=== PATIENT | female | born 1965 | race Caucasian/White ===

== ENCOUNTER 2018-06-29 14:53 | Emergency (ER) | payer OTHER, BC ==
[2018-06-29] MEDS: ALBUTEROL 0.083% (NEB) 2.5 MG/3 ML AMP NEB (18:08)
[2018-06-29] MEDS: IPRATROPIUM (NEB) 0.5 MG/2.5 ML AMP NEB (18:08)
[2018-06-29] MEDS: DEXAMETHASONE (1 MG/ML PO SYG) PO (18:23)
== END 2018-06-29 19:46 | disposition home or self-care (01) ==
LOC: FTE 14:53
DX: R05 Cough (principal)
CPT/HCPCS: 94664; 99283-25

== ENCOUNTER 2018-07-17 12:05 | Emergency (ER) | payer OTHER ==
[2018-07-17] MEDS: DEXAMETHASONE 10 MG/ML 1 ML INJ IM (12:33)
[2018-07-17] MEDS: IPRATROPIUM (NEB) 0.5 MG/2.5 ML AMP HHN (12:42)
[2018-07-17] MEDS: ALBUTEROL 0.083% (NEB) 2.5 MG/3 ML AMP HHN (12:43)
== END 2018-07-17 13:16 | disposition home or self-care (01) ==
LOC: FTE 13:16 → E/R 12:05
DX: R05 Cough (principal)
CPT/HCPCS: 71045; 94664; 96372; 99284-25

== ENCOUNTER 2018-07-27 15:00 | Emergency (ER) | payer OTHER ==
[2018-07-27] MEDS: predniSONE 20 MG TAB PO (16:26)
[2018-07-27] MEDS: ALBUTEROL 0.083% (NEB) 2.5 MG/3 ML AMP HHN (17:04)
== END 2018-07-27 17:59 | disposition home or self-care (01) ==
LOC: FTE 15:00
DX: J06.9 Acute upper respiratory infection, unspecified (principal)
CPT/HCPCS: 94664; 99283-25

== ENCOUNTER 2018-08-09 08:50 | Emergency (ER) | payer OTHER ==
[2018-08-09] MEDS: DEXAMETHASONE 10 MG/ML 1 ML INJ IM (09:24)
[2018-08-09] MEDS: ALBUTEROL 0.083% (NEB) 2.5 MG/3 ML AMP HHN (09:25)
[2018-08-09] MEDS: IPRATROPIUM (NEB) 0.5 MG/2.5 ML AMP HHN (09:25)
== END 2018-08-09 10:24 | disposition home or self-care (01) ==
LOC: FTE 10:24
DX: J20.9 Acute bronchitis, unspecified (principal); J45.901 Unspecified asthma with (acute) exacerbation
CPT/HCPCS: 94644; 96372; 99284-25

== ENCOUNTER 2018-12-13 17:16 | Emergency (ER) | payer OTHER ==
[2018-12-13] MEDS: predniSONE 20 MG TAB PO (18:53)
[2018-12-13] MEDS: ALBUTEROL 0.083% (NEB) 2.5 MG/3 ML AMP NEB (18:54)
[2018-12-13] MEDS: IPRATROPIUM (NEB) 0.5 MG/2.5 ML AMP NEB (18:54)
== END 2018-12-13 19:48 | disposition home or self-care (01) ==
LOC: FTE 17:16
DX: J45.901 Unspecified asthma with (acute) exacerbation (principal)
CPT/HCPCS: 94664; 99283-25